=== PATIENT | female | born 1985 | race American Indian/Alaskan Native ===

== ENCOUNTER 2018-12-19 08:37 | Emergency (ER) | payer OTHER ==
[2018-12-19 08:51] VITALS: BP 160/92
[2018-12-19] MEDS ORDERED: BENADRYL IV ONE (09:32)
[2018-12-19] MEDS ORDERED: NACL 0.9% 1000 ML 1,000 ML IV ONE (09:32)
[2018-12-19] MEDS ORDERED: SOLU-Medrol IM ONE (09:32)
[2018-12-19] MEDS ORDERED: PEPCID IV ONE (09:33)
--- NOTE | 2018-12-19 09:38 | Emergency Department Report ---
ED General Adult HPI - General Chief complaint: Allergic Reaction Stated complaint: ALLERGIC REACTION Time Seen by Provider: 12/19/18 09:13 Source: patient Mode of arrival: Ambulatory Limitations: No Limitations - History of Present Illness Initial comments: The patient presents to the emergency department with a chief complaint of diffuse itching. Patient states she was seen yesterday at [facility] [place] for an allergic reaction. Patient states that she was medically evaluated by laboratory studies and the cause of her itching was not found. Patient states she'll improve while in the hospital yesterday but this morning woke up itching all over. She denies any change in her detergents, soaps, environmental exposures. -: Sudden Severity scale (0 -10): 0 Consistency: constant Improves with: none Worsens with: none Associated Symptoms: denies other symptoms Treatments Prior to Arrival: none - Related Data Previous Rx's Medication Instructions Recorded Last Taken Type hydrOXYzine HCL [Atarax] 10 mg PO Q6HR PRN #12 tablet 12/19/18 Unknown Rx Allergies Allergy/AdvReac Type Severity Reaction Status Date / Time iodine Allergy Swelling Verified 12/19/18 08:40 ED Review of Systems ROS: Stated complaint: ALLERGIC REACTION Other details as noted in HPI Comment: All other systems reviewed and negative Constitutional: denies: chills, fever Eyes: denies: eye pain, eye discharge, vision change ENT: denies: ear pain, throat pain Respiratory: denies: cough, shortness of breath, wheezing Cardiovascular: denies: chest pain, palpitations Endocrine: no symptoms reported Gastrointestinal: denies: abdominal pain, nausea, diarrhea Genitourinary: denies: urgency, dysuria, discharge Musculoskeletal: denies: back pain, joint swelling, arthralgia Skin: denies: rash, lesions Neurological: denies: headache, weakness, paresthesias Psychiatric: denies: anxiety, depression Hematological/Lymphatic: denies: easy bleeding, easy bruising ED Past Medical Hx - Past Medical History Previous Medical History?: No - Surgical History Past Surgical History?: Yes Additional Surgical History: - Social History Smoking Status: Never Smoker Substance Use Type: None - Medications Home Medications: Home Medications Medication Instructions Recorded Confirmed Last Taken Type hydrOXYzine HCL [Atarax] 10 mg PO Q6HR PRN #12 tablet 12/19/18 Unknown Rx ED Physical Exam - General Limitations: No Limitations General appearance: alert, in no apparent distress - Head Head exam: Present: atraumatic, normocephalic - Eye Eye exam: Present: normal appearance, PERRL, EOMI - ENT ENT exam: Present: mucous membranes moist - Neck Neck exam: Present: normal inspection - Respiratory Respiratory exam: Present: normal lung sounds bilaterally. Absent: respiratory distress - Cardiovascular Cardiovascular Exam: Present: regular rate, normal rhythm. Absent: systolic murmur, diastolic murmur, rubs, gallop - GI/Abdominal GI/Abdominal exam: Present: soft, normal bowel sounds. Absent: distended, tenderness - Extremities Exam Extremities exam: Present: normal inspection - Back Exam Back exam: Present: normal inspection - Neurological Exam Neurological exam: Present: alert, oriented X3, CN II-XII intact. Absent: motor sensory deficit - Psychiatric Psychiatric exam: Present: normal affect, normal mood - Skin Skin exam: Present: warm, dry, intact, normal color. Absent: rash ED Course Vital Signs 12/19/18 08:48 Temperature 98.8 F Pulse Rate 103 H Respiratory 17 Rate Blood Pressure 160/92 O2 Sat by Pulse 99 Oximetry ED Medical Decision Making - Medical Decision Making Improved with [facility] Critical care attestation.: If time is entered above; I have spent that time in minutes in the direct care of this critically ill patient, excluding procedure time. ED Disposition Clinical Impression: Generalized pruritus Disposition: DC-01 TO HOME OR SELFCARE Is pt being admited?: No Does the pt Need Aspirin: No Condition: Stable Instructions: Itchy Skin (ED) Additional Instructions: return if worse Prescriptions: hydrOXYzine HCL [Atarax] 10 mg PO Q6HR PRN #12 tablet PRN Reason: Itching Referrals: PRIMARY CARE,MD [Primary Care Provider] - 3-5 Days [facility] [Provider Group] - 3-5 Days [facility] [Provider Group] - 3-5 Days Time of Disposition: 10:59
[2018-12-19] MEDS ORDERED: ATARAX PO ONE (10:00)
== END 2018-12-19 11:08 | disposition home or self-care (01) ==
LOC: ED 08:37
DX: L29.8 Other pruritus (principal); Z79.899 Other long term (current) drug therapy; Z91.041 Radiographic dye allergy status
CPT/HCPCS: 96372; 96374; 96375; 99282; J1200; J2930; J7030

== ENCOUNTER 2021-07-02 16:53 | Emergency (ER) | payer BC ==
[2021-07-02] MEDS ORDERED: ACETAMINOPHEN 500 MG TAB PO ONE (22:44)
[2021-07-02 23:06] LABS: Bilirubin,Urine NEG (Negative); Blood,Urine LG (Negative); Color,Urine Yellow (Yellow); Mucus,Urine FEW /HPF; Protein,Urine <15 mg/dL mg/dL (Negative)
[2021-07-02 23:55] LABS: HCG Qualitative,Urine Negative (Negative)
--- NOTE | 2021-07-03 00:09 | Emergency Department Report ---
ED Female HPI - General Chief complaint: Urogenital-Female Stated complaint: VAGINAL BLEEDING/BACK PAIN Source: patient Mode of arrival: Ambulatory Limitations: No Limitations - History of Present Illness Initial comments: Patient is a A5 36-year-old -[place] female with no past medical history presents to the ED with complaint of persistent heavy vaginal bleeding for the last 1 week. Patient states that her LMP was June 22 but lasted 3 days but she started having another bout of heavy vaginal bleeding which has been persistent for the last 1 week. Patient also complains of low back pain. Patient denies fall, traumatic injury, dysuria, urinary frequency and urgency, fever, chills, abdominal pain, chest pain or shortness of breath, nausea and vomiting or diarrhea, heavy lifting, dizziness or syncope. MD Complaint: vaginal bleeding, other (LOW BACK PAIN) -: Sudden, week(s) (1) Location: other (vaginal) Radiation: non-radiating Severity: moderate Severity scale (0 -10): 5 Quality: sharp, aching Consistency: constant Improves with: none Worsens with: none Are you Now?: No Last Menstrual Period: 06/22/21 EDC: 03/29/22 Associated Symptoms: denies other symptoms, vaginal bleeding. denies: vaginal discharge, abdominal pain, nausea/vomiting, fever/chills, headaches, loss of appetite, dysuria, hematuria, rash, seizure, weakness - Related Data Sexually active: Yes : 7 Para: 2 A: 5 Previous Rx's Medication Instructions Recorded Last Taken Type hydrOXYzine HCL [Atarax] 10 mg PO Q6HR PRN #12 tablet 12/19/18 Unknown Rx Cyclobenzaprine [Flexeril] 10 mg PO TID PRN #15 tab 07/03/21 Unknown Rx Ibuprofen [Motrin] 800 mg PO Q8HR PRN #30 tablet 07/03/21 Unknown Rx medroxyPROGESTERone ACETATE 10 mg PO DAILY #10 tab 07/03/21 Unknown Rx [Provera] Allergies Allergy/AdvReac Type Severity Reaction Status Date / Time iodine Allergy Swelling Verified 07/02/21 18:08 ED Review of Systems ROS: Stated complaint: VAGINAL BLEEDING/BACK PAIN Other details as noted in HPI Constitutional: denies: chills, fever Eyes: denies: eye pain, eye discharge, vision change ENT: denies: ear pain, throat pain Respiratory: denies: cough, shortness of breath, wheezing Cardiovascular: denies: chest pain, palpitations Endocrine: no symptoms reported Gastrointestinal: denies: abdominal pain, nausea, diarrhea Genitourinary: abnormal menses (Heavy vaginal bleeding). denies: urgency, dysuria, discharge Musculoskeletal: back pain (lower back pain). denies: joint swelling, arthralgia Skin: denies: rash, lesions Neurological: denies: headache, weakness, paresthesias Psychiatric: denies: anxiety, depression Hematological/Lymphatic: denies: easy bleeding, easy bruising ED Past Medical Hx - Surgical History Additional Surgical History: , tubaligation - Social History Smoking Status: Never Smoker Substance Use Type: None - Medications Home Medications: Home Medications Medication Instructions Recorded Confirmed Last Taken Type hydrOXYzine HCL [Atarax] 10 mg PO Q6HR PRN #12 tablet 12/19/18 Unknown Rx Cyclobenzaprine [Flexeril] 10 mg PO TID PRN #15 tab 07/03/21 Unknown Rx Ibuprofen [Motrin] 800 mg PO Q8HR PRN #30 tablet 07/03/21 Unknown Rx medroxyPROGESTERone ACETATE 10 mg PO DAILY #10 tab 07/03/21 Unknown Rx [Provera] ED Physical Exam - General Limitations: No Limitations General appearance: alert, in no apparent distress - Head Head exam: Present: atraumatic, normocephalic, normal inspection - Eye Eye exam: Present: normal appearance, PERRL, EOMI Pupils: Present: normal accommodation - ENT ENT exam: Present: normal exam, normal orophraynx, mucous membranes moist, TM's normal bilaterally, normal external ear exam - Neck Neck exam: Present: normal inspection, full ROM. Absent: tenderness - Respiratory Respiratory exam: Present: normal lung sounds bilaterally. Absent: respiratory distress, wheezes, rales, rhonchi, chest wall tenderness, accessory muscle use, decreased breath sounds, other - Cardiovascular Cardiovascular Exam: Present: regular rate, normal rhythm, normal heart sounds. Absent: systolic murmur, diastolic murmur, rubs, gallop - GI/Abdominal GI/Abdominal exam: Present: soft, normal bowel sounds. Absent: tenderness, guarding, rebound, hyperactive bowel sounds, hypoactive bowel sounds - Bi-manual exam: Present: other (Pelvic exam deferred at this time) - Extremities Exam Extremities exam: Present: normal inspection, full ROM, normal capillary refill - Back Exam Back exam: Present: normal inspection, full ROM, tenderness (Palpable lumbosacral paraspinal musculoskeletal tenderness), muscle spasm, paraspinal tenderness. Absent: CVA tenderness (R), CVA tenderness (L), vertebral tenderness - Neurological Exam Neurological exam: Present: alert, oriented X3, CN II-XII intact, normal gait, reflexes normal - Psychiatric Psychiatric exam: Present: normal affect, normal mood - Skin Skin exam: Present: warm, dry, intact, normal color. Absent: rash ED Course Vital Signs 07/02/21 18:04 Temperature 98.1 F Pulse Rate 92 H Respiratory 16 Rate Blood Pressure 173/99 O2 Sat by Pulse 96 Oximetry ED Medical Decision Making - Medical Decision Making This is a A5 36-year-old -[place] female with no past medical history presents to the ED with complaint of persistent heavy vaginal bleeding for the last 1 week. Patient states that her LMP was June 22 but lasted 3 days but she started having another bout of heavy vaginal bleeding which has been persistent for the last 1 week. Patient also complains of low back pain. In the ED, patient is alert and oriented x3 and is not in any distress. Lab test results were reviewed and are all nonactionable. Patient symptoms are likely due to metrorrhagia. Patient was therefore discharged home on medications and advised to follow-up with [facility] physician in 7 to 10 days for reevaluation or return to the ED immediately if symptoms get worse. - Differential Diagnosis Muscle spasm; menorrhagia; UTI; STD; metrorrhagia; ; fibroids Critical care attestation.: If time is entered above; I have spent that time in minutes in the direct care of this critically ill patient, excluding procedure time. ED Disposition Clinical Impression: Dysfunctional uterine hemorrhage, Spasm of muscle of lower back Disposition: HOME / SELF CARE / HOMELESS Is pt being admited?: No Does the pt Need Aspirin: No Condition: Stable Instructions: Muscle Cramps and Spasms, [id number], Menorrhagia, [id number], Metrorrhagia, [id number], Abnormal Uterine Bleeding, E asy-to-Read Additional Instructions: All lab test results were reviewed and are all nonactionable. Therefore take medication with food, drink plenty of fluids and follow-up with your [employer] physician in 7 to 10 days for reevaluation. Return to the ED immediately if symptoms get worse. Prescriptions: Cyclobenzaprine [Flexeril] 10 mg PO TID PRN #15 tab PRN Reason: Muscle Spasm Ibuprofen [Motrin] 800 mg PO Q8HR PRN #30 tablet PRN Reason: Pain , Severe (7-10) medroxyPROGESTERone ACETATE [Provera] 10 mg PO DAILY #10 tab Referrals: GLADYS COOPER MD [Staff Physician] - 7-10 days Time of Disposition: 00:10 Print Language: [id number]
[2021-07-03 00:30] VITALS: BP 173/77
== END 2021-07-03 00:33 | disposition home or self-care (01) ==
LOC: ED 16:53
DX: M62.830 Muscle spasm of back (principal); Z91.041 Radiographic dye allergy status
CPT/HCPCS: 81001; 81025; 99283